=== PATIENT | female | born 1995 | race Caucasian/White ===

== ENCOUNTER 2025-03-17 13:13 | Emergency (ER) | payer MEDICAID, SELFPAY ==
[2025-03-17 13:21] VITALS: PULSE 70; RESP 16; O2SAT 98
[2025-03-17 13:29] VITALS: BP 142/81; PULSE 69; RESP 20; TEMP 37; O2SAT 98; BMI 32.9
--- NOTE | 2025-03-17 13:38 | XR_ITS ---
Examination: Duplex scan of the lower extremity, unilateral right complete Date and time of exam: March 17, 2025 1359 hours INDICATIONS: Right And pain beginning one week ago Technique: Duplex scan of the extremity veins using B-mode/grayscale imaging and Doppler spectral analysis and color flow Attention is directed to internal echogenicity, compression and augmentation involving these veins, color flow assessment, spectral analysis Findings: Major deep venous structures in the extremity demonstrate normal course and caliber. There is no evidence of deep vein thrombosis. Normal color flow and spectral analysis Impression: Negative for DVT..
--- NOTE | 2025-03-17 14:17 | PD.EDADULT ---
ED General RME/HPI General Chief complaint: General Adult/Misc Complain Stated complaint: NUMBNESS TO RIGHT LEG Time Seen by Provider: 03/17/25 13:37 Arrival date/time: 03/17/25 13:13 29-year-old female approximately 35 weeks presents to the emergency department today via EMS with concerns for right leg pain patient was instructed to rule out DVT Limitations: no limitations Related Data Allergies Allergy/AdvReac Type Severity Reaction Status Date / Time No Known Allergies Allergy Verified 03/17/25 13:24 Review of Systems Review of Systems Systems Reviewed: All systems reviewed, normal except as documented Constitutional Constitutional: Reports system reviewed and no additional complaints, except as documented, Denies fever(s) and Denies headache(s) Eyes Eyes: Reports system reviewed and no additional complaints, except as documented and Denies blurry vision ENT Ears, Nose, Mouth, and Throat: Reports system reviewed and no additional complaints, except as documented, Denies headache(s), Denies nasal congestion and Denies nasal discharge Cardiovascular Cardiovascular: Reports system reviewed and no additional complaints, except as documented, Denies chest pain and Denies dyspnea Respiratory Respiratory: Reports system reviewed and no additional complaints, except as documented, Denies chest congestion, Denies cough and Denies dyspnea Gastrointestinal Gastrointestinal: Reports system reviewed and no additional complaints, except as documented and Denies abdominal pain Integumentary/Breasts Skin/Breast: Reports system reviewed and no additional complaints, except as documented and Denies rash Neurologic Neurologic: Reports system reviewed and no additional complaints, except as documented, Reports as per HPI and Denies headache(s) Past Medical History Social History SMOKING STATUS: Never smoker ED Exam General Limitations: Present no limitations General appearance: Present alert and in no apparent distress Head Head exam: Present atraumatic Eye Eye exam: Present normal appearance, PERRL and EOMI ENT ENT exam: Present normal exam, normal oropharynx and mucous membranes moist Neck Neck exam: Present normal inspection, full ROM and trachea midline Chest Chest inspection: Present normal inspection and symmetric chest wall rise Respiratory Respiratory exam: Present normal lung sounds bilaterally Cardiovascular Cardiovascular exam: Present regular rate, normal rhythm and normal heart sounds Abdominal Exam Abdominal exam: Present soft and normal bowel sounds; Absent distention, tenderness, guarding, rebound or rigidity Extremities Exam Extremities exam: Present normal inspection and full ROM Back Exam Back exam: Present normal inspection and full ROM Neurological Exam Neurological exam: Present alert, oriented X3, CN II-XII intact, normal gait and reflexes normal; Absent motor sensory deficit Psychiatric Psychiatric exam: Present normal affect and normal mood Skin Skin exam: Present warm, dry, intact and normal color Course Quality Measures none Orders Category Date Time Status US venous doppler LE RT Stat Exams 03/17/25 13:38 Completed Vital Signs Vital signs: Vital Signs Temperature 98.6 F 03/17/25 13:29 Pulse Rate 69 03/17/25 13:29 Respiratory Rate 20 03/17/25 13:29 Blood Pressure 142/81 H 03/17/25 13:29 Pulse Oximetry (%) 98 03/17/25 13:29 Oxygen Delivery Method Room Air 03/17/25 13:29 O2 saturation 98% room air within the limits Discharge Plan Plan Patient Disposition: HOME (Self Care) Discharge Disposition comment: Stable Prescriptions/Referrals Referrals: Veda Ashley PA-C ([facility]) [Primary Care Provider] - 03/18/25 Problem List Clinical Impression: Leg pain, right Patient/Caregiver Discharge Instructions Education Materials: ED RICE Additional Instructions: Please follow up with your primary care doctor in the next 24-48hrs for any worsening symptoms return here immediately Print Language: Sinhala Stand Alone Forms: Irena Award Info., Patient Portal Info Letter PA/BRITTANY Supervising Physician PA/BRITTANY Supervising Physician: Dr. nugent MDM Narrative MDM hospital course (for use when minimal MDM required): 29-year-old female approximately 35 weeks presents to the emergency department today via EMS with concerns for right leg pain patient was instructed to rule out DVT On exam patient has no evidence of DVT clinically patient does not have DVT Ultrasound obtained no DVT noted Patient is no redness swelling or warmth patient walks with steady gait Patient reports no chest pain no shortness of breath no abdominal pain Patient reports no vaginal bleeding or pelvic pain Patient discharged home in no distress to follow-up with primary care doctor in the next 24 to 48 hours and for any worsening symptoms to return to the ER immediately Clinical Information Provided by: none Medical Records reviewed [facility] Meds/Rx considered, not ordered None Labs/Rad/Tests considered, not ordered None Chronic Illness/Social Conditions which may negatively complicate care or outcome(s)-explain: None or not applicable EKG EKG not done Labs Labs: none Imaging Imaging interpretation: see narrative above Imaging Interpretation(s): Obtained Medication Administration(s) none Diagnosis Differential Diagnosis ED Complaint MDM: DVT, leg pain, muscle spasm, nerve impingement Diagnoses ruled out and/or further discussions: Nerve impingement
== END 2025-03-17 16:31 | disposition home or self-care (01) ==
PROVIDERS: Emergency Provider Family Medicine; PCP Nurse Practitioner Family
DX: O99.891 Other specified diseases and conditions complicating pregnancy (principal); M79.604 Pain in right leg; Z3A.35 35 weeks gestation of pregnancy
CPT/HCPCS: 93971; 99283

== ENCOUNTER 2025-04-20 15:36 | Observation (INO) | payer MEDICAID, SELFPAY ==
[2025-04-20 15:46] VITALS: BMI 35.3
[2025-04-20 16:05] VITALS: BP 129/77; PULSE 70
[2025-04-20 16:25] VITALS: BP 129/77; PULSE 70; RESP 18; RESP 98; TEMP 36.8
[2025-04-20 16:26] VITALS: BP 130/72; PULSE 75
== END 2025-04-20 16:35 | disposition home or self-care (01) ==
PROVIDERS: Admitting Provider Specialist; Visit Provider Specialist
DX: O12.03 Gestational edema, third trimester (principal); Z3A.40 40 weeks gestation of pregnancy
CPT/HCPCS: 59025; 59899

== ENCOUNTER 2025-04-22 13:33 | Inpatient (IN) | payer MEDICAID, SELFPAY ==
--- NOTE | 2025-04-18 11:12 | ESHP_ITS ---
RE: ALEX LEUNG : 1995 DATE OF ADMISSION: 04/22/2025 HISTORY OF PRESENT ILLNESS: This is a 29-year-old 1, para 0 with intrauterine at 40 weeks 2 days on 04/22 who presents for postdates induction. Her care was complicated by lower extremity edema. Her workup and evaluation in her included a bilateral venous Doppler, which was negative for a DVT. She has had normal blood pressures in the office but her blood pressure today was elevated so PIH labs were drawn. She reports occasional contractions. She denies any leaking or bleeding. She reports normal movement. ALLERGIES: NO KNOWN DRUG ALLERGIES. MEDICATIONS: multivitamin 1 p.o. daily. SOCIAL HISTORY: She denies any alcohol, drug use, or smoking. PAST MEDICAL HISTORY: Allergic rhinitis, rubella non-immune, lower extremity edema. SOCIAL HISTORY: She is . She denies any alcohol, drug use, or smoking. FAMILY HISTORY: Denies. PAST SURGICAL HISTORY: Denies. REVIEW OF SYSTEMS: She denies any chest pain, palpitations, cough, fever, shortness of breath, or lower extremity pain. She denies any flank pain, right upper quadrant pain, headache, change of vision, or swelling in her face and hands. PHYSICAL EXAMINATION: VITAL SIGNS: Blood pressure 137/70, heart rate 88, respiration 18, and temperature is 98.6. Weight 216 pounds. HEENT: Oropharynx and sclerae are clear. LUNGS: Clear to auscultation bilaterally. HEART: Regular rate and rhythm. ABDOMEN: Gravid consistent with estimated weight 7 and 3/4 pounds. EXTREMITIES: Nontender. SKIN: No gross rashes or lesions. NEUROLOGIC: No focal deficit. ASSESSMENT AND PLAN: Intrauterine at 40 weeks 2 days , HTN, induction of labor, anticipate spontaneous vaginal delivery. Informed consent was obtained. The patient was made aware of the risks, complications, alternatives, and benefits of operative vaginal delivery and delivery and agrees with these modes of delivery if indicated. DT: 10:34:31 TT: 11:10:00 Ref: [id number] - TID: [id number] MTDD
[2025-04-22] VITALS (78 sets, daily range): BP systolic 123–163; BP diastolic 62–89; PULSE 42–97; RESP 19–99; TEMP 36.8; O2SAT 79–100; BMI 35.4
--- NOTE | 2025-04-22 14:42 | XR_ITS ---
EXAMINATION: age Limited TECHNIQUE: Limited transabdominal sonographic images pelvis Date and time: April 22, 2025, 1451 hours INDICATIONS: Labor evaluation, unknown presentation unknown weight. FINDINGS: Viable intrauterine gestation in cephalic presentation spine maternal left Cardiac motion 144 bpm Estimated weight 3274 g Estimated age 38 weeks 2 days IMPRESSION: Viable intrauterine gestation in cephalic presentation
[2025-04-22 15:44] LABS: Collection Type, Urine Clean Catch
[2025-04-22 15:47] LABS: Basophils # (Auto) 0.1 Thou/mm3 (0.0-0.2); Basophils % (Auto) 1 % (0-2.5); Eosinophils # (Auto) 0.3 Thou/mm3 (0.0-0.5); Eosinophils % (Auto) 2 % (0-10); Hematocrit 34.6 % (36.0-46.0); Hemoglobin 11.6 g/dL (12.0-16.0); Immature Granulocytes Auto 0.11 Thou/mm3 (0.00-0.00); Lymphocytes # (Auto) 2.6 Thou/mm3 (1.0-4.8); Lymphocytes % (Auto) 20 % (10-50); Mean Corpuscular HGB Conc 33.5 g/dl (31.0-37.0); Mean Corpuscular Hemoglobin 30.2 pg (25.0-35.0); Mean Corpuscular Volume 90 fL (80-100); Monocytes # (Auto) 0.9 Thou/mm3 (0.0-0.8); Monocytes % (Auto) 7 % (0-12); Neutrophils # (Auto) 9.0 Thou/mm3 (1.8-7.7); Neutrophils % (Auto) 70 % (37-80); Nucleated Red Blood Cell # 0.00 Thou/mm3 (0.00-0.00); Nucleated Red Blood Cell % 0 /100 WBC (0); Platelet Count 231 Thou/mm3 (140-440); RDW Standard Deviation 42.8 fL (36.4-46.3); Red Blood Count 3.84 Miln/mm3 (4.00-5.20); White Blood Count 13.0 Thou/mm3 (3.6-11.0)
[2025-04-22] MEDS: RINGERS LACTATED 1000 ML 1,000 ML 100 ML IV (15:55)
[2025-04-22 16:03] LABS: Bacteria,Urine Rare; Bilirubin,Urine Negative (Negative); Blood,Urine Negative (Negative); Clarity,Urine Clear (Clear/Hazy); Color,Urine Yellow (Lt Yel-Yel); Glucose, Urine Trace (Negative); Ketones,Urine Negative (Negative); Leukocyte Esterase,Urine Positive (Negative); Nitrite,Urine Negative (Negative); PH,Urine 6.0 (5.0-7.0); Protein,Urine Negative (Neg - Trace); RBC,Urine 3 /hpf (0-3); Specific Gravity,Urine 1.017 (1.001-1.035); Squamous Epithelial Cell,Urine 2 /hpf (0-5); Urobilinogen,Urine Negative mg/dL (0.0-1.0); WBC,Urine 3 /hpf (0-5)
[2025-04-22 16:11] LABS: Creatinine,Random Urine 67 mg/dL (30-125); Protein Total, Random Urine 12 mg/dL (1-14)
[2025-04-22 16:13] LABS: Alanine Aminotransferase 12 U/L (10-49); Albumin, Serum 3.9 gm/dL (3.5-5.0); Albumin/Globulin Ratio 1.8 (1.2-2.2); Alkaline Phosphatase 87 U/L (46-116); Anion Gap 11 (7-16); Aspartate Amino Transferase 18 U/L (0-34); BUN/Creatinine Ratio 14 Ratio (12-20); Bilirubin,Total 0.2 mg/dL (0.3-1.2); Blood Urea Nitrogen 10 mg/dL (9-23); Calcium 9.5 mg/dL (8.3-10.6); Calcium (Corrected) 9.6 mg/dL (8.5-10.1); Carbon Dioxide 21.9 mMol/L (20.0-31.0); Chloride 108 mMol/L (98-107); Creatinine (Component) 0.7 mg/dL (0.6-1.3); Estimated Creatinine Clearance 140.0 mL/min (>60); Globulin 2.2 gm/dL (2.3-3.5); Glucose 87 mg/dL (74-106); Osmolality,Calculated 279 (275-295); Potassium 4.0 mMol/L (3.4-5.1); Sodium 141 mMol/L (136-145); Total Protein 6.1 gm/dL (5.7-8.2); Uric Acid 4.0 mg/dL (3.1-7.8); eGFR > 60 See Note
[2025-04-22 16:36] LABS: Syphilis Nonreactive (Nonreactive)
--- NOTE | 2025-04-22 16:40 | PD.LDPPPRG ---
Subjective Subjective Interval history: Desires removal of balloon and Hernandez catheter. Denies any dizziness or lightheadedness. No vaginal bleeding around the balloon catheter or gauze packing. Adequate urine output Exam Vital Signs Pulse BP Pulse Ox 71 147/82 H 99 04/22/25 16:27 04/22/25 16:27 04/22/25 15:21 Objective Labs 04/22/25 15:33 04/22/25 15:33 Labs: Laboratory Results - last 24 hr 04/22/25 04/22/25 04/22/25 13:30 15:33 15:54 WBC 13.0 H RBC 3.84 L Hgb 11.6 L Hct 34.6 L MCV 90 MCH 30.2 MCHC 33.5 RDW Std Deviation 42.8 Plt Count 231 Neut % (Auto) 70 Lymph % (Auto) 20 Stephens % (Auto) 7 Eos % (Auto) 2 Baso % (Auto) 1 Neut # (Auto) 9.0 H Lymph # (Auto) 2.6 Stephens # (Auto) 0.9 H Eos # (Auto) 0.3 Baso # (Auto) 0.1 Immature Gran # (Auto) 0.11 H Absolute Nucleated RBC 0.00 Immature Gran % 1 H Nucleated RBC % 0 Sodium 141 Potassium 4.0 Chloride 108 H Carbon Dioxide 21.9 Anion Gap 11 BUN 10 Creatinine 0.7 Estim Creat Clear Calc 140.0 eGFR > 60 BUN/Creatinine Ratio 14 Glucose 87 Calculated Osmolality 279 Uric Acid 4.0 Calcium 9.5 Corrected Calcium 9.6 Total Bilirubin 0.2 L AST 18 ALT 12 Alkaline Phosphatase 87 Total Protein 6.1 Albumin 3.9 Globulin 2.2 L Albumin/Globulin Ratio 1.8 Ur Collection Type Clean Catch Urine Color Yellow Urine Clarity Clear Urine pH 6.0 Ur Specific Delta 1.017 Urine Protein Negative Urine Glucose (UA) Trace Urine Ketones Negative Urine Blood Negative Urine Nitrite Negative Urine Bilirubin Negative Urine Urobilinogen (Auto) Negative Ur Leukocyte Esterase Positive Urine RBC 3 Urine WBC 3 Ur Squamous Epith Cells 2 Urine Bacteria Rare Ur Random Creatinine 67 U Random Total Protein 12 Syphilis Serology Nonreactive Blood Bank Wristband ID Yes Assessment & Plan Time Spent With Patient Time: Total time spent is greater than 50% in coordination of care (as documented) at patient's floor/unit and/or counseling patient:
[2025-04-22 17:50] LABS: Fibrinogen 398 mg/dL (175-375); INR 0.9 (0.9-1.3); Partial Thromboplastin Time 26.4 Seconds (22.0-36.0); Prothrombin Time 9.8 Seconds (9.0-12.2)
[2025-04-23] VITALS (17 sets, daily range): BP systolic 108–159; BP diastolic 63–93; PULSE 65–86; RESP 12–20; TEMP 36.4–37.2; O2SAT 97–100
[2025-04-23] MEDS: RINGERS LACTATED 1000 ML 1,000 ML 100 ML IV (01:44)
[2025-04-23] MEDS: FAMOTIDINE INJ 10 MG/ML VIAL 2 ML 20 MG IV (04:33)
[2025-04-23] MEDS: ceFAZolin/D5W 2 GM IV 2 GM/100 ML BAG IV (04:35)
[2025-04-23] MEDS: CITRIC ACID/SODIUM CITR 15 ML UDC (BICITRA) 30 ML PO (04:35)
--- NOTE | 2025-04-23 05:02 | PD.LDPN ---
Documentation for date of: 04/23/25 OB Labor Progress Note Pelvic Exam Dilation (cm): Closed Effacement (%): Thick station: -3 Amniotic membrane status: Intact Contractions Monitor mode: External Contraction frequency: X1 NOTED VIA TOCO Contraction pattern: Tetanic Contraction intensity: Mild Status status: Category ll Assessment and Plan Comments: IUP 40w3d Postdates Induction of Labor Failed Induction due to recurrent prolonged decelerations with contractions and cervix long and closed. Delivery Informed consent obtained. Patient made aware of the risks, complications, alternatives and benefits of the proposed procedure and she agrees.
--- NOTE | 2025-04-23 06:51 | ESOP_ITS ---
Operative Note - RESEARCH BIOSTATISTICIAN Procedure Date of procedure: 04/23/25 Procedure Performed: Primary low transverse Delivery via Pfanensteil Skin Incision Indication: IUP 40w3d Postdates Induction of Labor Failed Induction due to recurrent prolonged decelerations with contractions and cervix long and closed. Pre-Op diagnosis: IUP 40w3d Postdates Induction of Labor Failed Induction due to recurrent prolonged decelerations with contractions and cervix long and closed. Post-Op diagnosis: IUP 40w3d Postdates Induction of Labor Failed Induction due to recurrent prolonged decelerations with contractions and cervix long and closed. Meconium. Endometriosis Stage III Anesthesia type: Spinal Procedure description: After proper informed consent was obtained and the patient was made aware of the risks, complications, alternatives and benefits of the proposed procedure she was taken to the operating room where she underwent induction of spinal anesthesia. She was prepped and draped in the usual sterile fashion. A timeout was performed.? A Pfannenstiel skin incision was made with the scalpel and carried through to the underlying layer of fascia with the Bovie. The fascia was nicked in the midline incision and the incision was extended bilaterally with the Bovie. The inferior aspect of the fascial incision was grasped with Syl clamps elevated and the underlying rectus muscle dissected off with the Bovie. The superior aspect the fascial incision was grasped with Syl clamps elevated and the underlying rectus muscle dissected off with the Bovie. The rectus muscles were in the midline. The peritoneum was grasped between 2 Saldivar clamps and entered sharply with the Metzenbaum scissors. The peritoneum was extended superiorly and inferiorly with good visualization of the bladder. The vesicouterine peritoneum was incised transversely and the bladder flap created digitally. A Alma blade was inserted. A low transverse incision was made in the uterus with a scapel and the incision was extended digitally. The male 's head delivered and the mouth and nose were suctioned with the bulb suction. The shoulder and body delivered atraumatically. The cord was clamped after 30 second delayed cord clamping and the cord was cut.? The was handed off to the waiting Pediatric staff, cord blood was collected for lab testing. The placenta was removed complete and intact. The uterus was exteriorized and cleared of all clots and debris. Extensive endometriosis both ovaries and posterior uterosacral ligments and posterior uterus. The uterine incision was closed with #1-0 chromic catgut suture in a running interlocking fashion. A second layer of the same suture was used to imbricate the first layer and obtain excellent hemostasis. The vesicouterine peritoneum was closed with 2- 0 chromic catgut suture in a running fashion. The firm uterus was returned to the abdomen. The gutters were cleared of all clots and debris. The peritoneum was closed with 0 chromic catgut suture in running fashion. The rectus muscle was closed with 0 chromic catgut suture. The fascia was closed with 0 Vicryl beginning at each angle and ending in the center in a running fashion. The subcutaneous tissue was irrigated with warmed normal saline solution and found to be hemostatic. The subcutaneous tissue was closed with 2-0 chromic catgut suture in a running fashion. The skin was closed with 4-0 Monocryl. A Dermabond Prineo dressing was applied and a sterile pressure dressing was applied.? She tolerated the procedure well. Counts were correct. I discussed with the patient the nature of her condition, intraoperative findings and expectation for recovery all? questions answered. Estimated blood loss (ml): 400 Findings: Live baby boy APGARS see RN notes Weight see RN notes Meconium stained amniotic fluid Placenta removed complete and intact Endometriosis Stage III Complications: none Surgical staff Operation Date: 04/23/25 05:30 Case Staff CUSTOMER SUCCESS ADVOCATE: Vishnu Horne sugar chipper machine operator: Jorge Gallegos Diagnosis Discharge Diagnosis (1) delivery delivered: Status: Acute (2) Endometriosis: Status: Acute Problem List Completed Was Problem List Reviewed/Reconciled?: Yes
--- NOTE | 2025-04-23 06:51 | PD.LDDS ---
DS: Providers Provider Date of admission: 04/22/25 14:51 Primary care physician: Physician No Primary/Family Admitting Provider: Daniele Wilkerson MD Attending Provider on Admission: Daniele Wilkerson MD Attending Provider on DC: Daniele Wilkerson MD Discharging Provider: Daniele Wilkerson MD DS: Diagnosis Problem List Completed Was Problem List Reviewed/Reconciled?: Yes Summary/Hosp Course Peripartum Data Delivery Method: Low Transverse Procedures: Procedures Operation Date: 04/23/25 05:30 Actual Procedure Side Surgeon p in OB Daniele Wilkerson MD Time Spent with Patient Time attestation: Total time spent providing and/or coordinating discharge services: Exam Vital Signs Temp Pulse Resp BP Pulse Ox 98.3 F 85 19 159/93 H 99 04/22/25 13:50 04/23/25 04:44 04/22/25 13:50 04/23/25 04:44 04/22/25 21:58 Discharge Plan Plan Patient Disposition: HOME (Self Care) Patient condition on transfer: Stable Prescriptions/Referrals Prescriptions/Med Rec: New hydrocodone-acetaminophen 5-325 mg tablet 1 tab PO Q6H MDD 4 PRN (Reason: pain) Qty: 20 0RF ibuprofen 600 mg tablet 600 mg PO Q6H PRN (Reason: pain) Qty: 30 0RF Continued PNV no.95-ferrous fumarate-FA [] 28 mg iron- 800 mcg tablet 1 tab PO DAILY Patient Comments: TAKE 1 TABLET BY MOUTH ONCE A DAY Discontinued folic acid 1 mg tablet 1 mg PO DAILY Patient Comments: TAKE 1 TABLET BY MOUTH EVERY DAY Referrals: No Primary/Family,Physician [Primary Care Provider] Patient/Caregiver Discharge Instructions Discharge Activity: activity as tolerated Other Discharge Activity Instructions:: Follow up in office whenever she gets back from her trip. Education Materials: Breast Care After , : Caring for Yourself, C Section Dc Print Language: Hebrew Stand Alone Forms: Irena Award Info., Patient Portal Info Letter Discharge Order Discharge Orders: Discharge (Routine); Ordered 04/25/25 Ordered By: Daniele Wilkerson Planned Discharge Date 04/25/25
[2025-04-23] MEDS: ONDANSETRON INJ 2 MG/ML INJ 2 ML 4 MG IVP (10:49)
[2025-04-23] MEDS: OXYTOCIN in NS 20 units 20 UNIT/1,000 ML BAG 125 UNIT IV (11:22)
[2025-04-23 11:32] LABS: Basophils # (Auto) 0.1 Thou/mm3 (0.0-0.2); Basophils % (Auto) 0 % (0-2.5); Eosinophils # (Auto) 0.0 Thou/mm3 (0.0-0.5); Eosinophils % (Auto) 0 % (0-10); Hematocrit 33.5 % (36.0-46.0); Hemoglobin 11.2 g/dL (12.0-16.0); Immature Granulocytes Auto 0.22 Thou/mm3 (0.00-0.00); Lymphocytes # (Auto) 1.3 Thou/mm3 (1.0-4.8); Lymphocytes % (Auto) 7 % (10-50); Mean Corpuscular HGB Conc 33.4 g/dl (31.0-37.0); Mean Corpuscular Hemoglobin 30.4 pg (25.0-35.0); Mean Corpuscular Volume 91 fL (80-100); Monocytes # (Auto) 0.4 Thou/mm3 (0.0-0.8); Monocytes % (Auto) 2 % (0-12); Neutrophils # (Auto) 17.2 Thou/mm3 (1.8-7.7); Neutrophils % (Auto) 90 % (37-80); Nucleated Red Blood Cell # 0.00 Thou/mm3 (0.00-0.00); Nucleated Red Blood Cell % 0 /100 WBC (0); Platelet Count 207 Thou/mm3 (140-440); RDW Standard Deviation 43.4 fL (36.4-46.3); Red Blood Count 3.69 Miln/mm3 (4.00-5.20); White Blood Count 19.1 Thou/mm3 (3.6-11.0)
[2025-04-23] MEDS: KETOROLAC INJ 30 MG/ML VIAL IVP (20:24)
[2025-04-23] MEDS: SIMETHICONE 80 MG CHEW PO (20:25)
[2025-04-24 00:15] VITALS: BP 129/68; PULSE 74; RESP 14; TEMP 36.7; O2SAT 97
[2025-04-24 03:32] VITALS: BP 112/67; PULSE 77; RESP 14; TEMP 36.8; O2SAT 98
[2025-04-24] MEDS: SIMETHICONE 80 MG CHEW PO ×2 (04:04→11:48)
[2025-04-24] MEDS: KETOROLAC INJ 30 MG/ML VIAL IVP (04:04)
[2025-04-24 07:30] VITALS: BP 116/69; PULSE 76; RESP 17; TEMP 37.1; O2SAT 97
--- NOTE | 2025-04-24 07:41 | ESPR_ITS ---
RE: ALEX LEUNG : 1995 DATE OF SERVICE: 04/24/2025 Postop day number 1. The patient denies any problem or complaint. She is voiding, ambulating, tolerating regular diet, passing flatus. She denies any excessive vaginal bleeding. She denies any dizziness or lightheadedness. She denies any chest pain, palpitations, shortness of breath or lower extremity pain. Blood pressure 112/67, heart rate 77, respirations 14, temperature is 98.2 pulse ox is 98% on room air. Lungs clear to auscultation bilaterally. Heart, regular rate and rhythm. Abdomen, dressing dry and intact. Fundus is firm. Extremities nontender. Hemoglobin pre-delivery 11.6, post-delivery 11.2. ASSESSMENT: Postoperative day number 1, status post delivery. PLAN: Remove dressing. Discontinue IV. Encourage ambulation, support. Possible discharge home tomorrow. DT: 07:17:01 TT: 07:40:00 Ref: [id number] - TID: [id number]
[2025-04-24] MEDS: ENOXAPARIN SOD INJ 40 MG/0.4 ML SYRINGE SC (08:06)
[2025-04-24 11:40] VITALS: BP 132/71; PULSE 89; RESP 18; TEMP 36.8; O2SAT 98
[2025-04-24] MEDS: IBUPROFEN TAB 400 MG TABLET 800 MG PO (11:48)
[2025-04-24 19:19] VITALS: BP 132/70; PULSE 89; RESP 17; TEMP 36.8; O2SAT 99
[2025-04-24] MEDS: HYDROcodone/APAP 5/325 TABLET 1 TAB PO (20:40)
[2025-04-25] MEDS: HYDROcodone/APAP 5/325 TABLET 1 TAB PO ×3 (03:04→12:11)
[2025-04-25] MEDS: SIMETHICONE 80 MG CHEW PO (03:04)
[2025-04-25 03:15] VITALS: BP 115/66; PULSE 78; RESP 18; TEMP 36.7; O2SAT 100
--- NOTE | 2025-04-25 07:15 | PC.NURSE ---
Mother resting quietly in room w/ mother at bedside. Requesting something for pain. Will cont' to monitor.
[2025-04-25 08:00] VITALS: BP 127/78; PULSE 75; RESP 17; TEMP 36.6; O2SAT 98
--- NOTE | 2025-04-25 08:19 | ESPR_ITS ---
RE: ALEX LEUNG : 1995 DATE OF SERVICE: 04/25/2025 SUBJECTIVE: Post op day #2. Patient denies any problem or complaints. She is voiding. She is ambulating. She is tolerating diet. She is passing flatus. She denies any excessive vaginal bleeding. She denies any dizziness or lightheadedness. She denies any chest pain, palpitations, shortness of breath, or lower extremity pain. OBJECTIVE: Vital Signs: Blood pressure 115/66, heart rate 78, respirations 18, temperature is 98.1, pulse ox is 100 % on room air. Lungs: Clear to auscultation bilaterally. Heart: Regular rate and rhythm. Abdomen: Incision clear and intact. Extremities: Nontender. ASSESSMENT: Postop day #2 status post delivery. PLAN: Discharge home. Discharge instructions given. I reviewed with the patient the finding of endometriosis at the time of the surgery. I discussed the nature of its condition, the significance for the future, as well as treatment plans and options, which we will cover more extensively on her post op visit. Discharge instructions given. Follow up in the office in 1 week. DT: 07:52:49 TT: 08:18:00 Ref: [id number] - TID: [id number]
[2025-04-25 11:40] VITALS: BP 119/75; PULSE 80; RESP 17; TEMP 36.6; O2SAT 99
[2025-04-25] MEDS: ENOXAPARIN SOD INJ 40 MG/0.4 ML SYRINGE SC (12:11)
--- NOTE | 2025-04-25 12:17 | PC.NURSE ---
Pt changed her mind and refused the MMR vaccine. Pt is afraid she was already given the vaccine even thought it was not documented. Vaccine returned to the pyxis.
--- NOTE | 2025-04-25 14:22 | PC.NURSE ---
Pt discharged home via private vehicle accompanied by her parents; pt taken to main entrance via w/c holding baby in baby carrier on her lap. D/C inst given w/ understanding expressed and questions answered.
--- NOTE | 2025-04-27 20:55 | PD.LDDELS ---
Data (Enciso) Data Hx Section: No : 1 Term: 0 : 0 Livin Abortions: Spontaneous & Theraputic: 0 Delivery Data (Enciso) Labor Data Initiation of labor: Induction Induction/Augmentation Agent: Artificial ROM ROM date: 04/23/25 ROM time: 05:29 Amniotic membrane rupture type: Artificial Amniotic fluid description: Clear Delivery Data delivery date: 04/23/25 [place] delivery time: 05:30 Placenta delivery date: 04/23/25 Placenta delivery time: 05:31 Delivered by: GEILING Delivery nurse: WERO JERNIGAN [place] nurse: ОЛЬГА MCNAMARA RN Perinatal Instructor at delivery: No Support person(s) at delivery: FATHER OF THE BABY Delivery Method Delivery method: Low Transverse Presentation: Vertex Anesthesia Type Anesthesia Type: Spinal Anesthesia type: Spinal Placenta Placenta delivery description: Manual Removal Cord blood sent to lab: Yes cord blood collection: Cord Blood Type Umbilical Cord cord description: 3 Vessels [place] Data (Enciso) Data order: 1 's gender: Male Identification band number: [id number] weight (gms): 8 lb 4.277 oz Weight (pounds): 8 lbs and 4.3 ozs 1 minute: 9 5 minutes: 9
== END 2025-04-25 14:22 | disposition home or self-care (01) | DRG 540 ==
LOC: S4SX 04-23 06:59 → S4NX 04-23 15:15
PROVIDERS: Admitting Provider Specialist; Visit Provider Specialist
PROC: 10D00Z1 Extraction of Products of Conception, Low, Open Approach (ICD-10-PCS; CPT 59514; principal; 2025-04-23 05:15)
DX: O48.0 Post-term pregnancy (principal); Z3A.40 40 weeks gestation of pregnancy; O77.0 Labor and delivery complicated by meconium in amniotic fluid; Z37.0 Single live birth; O76 Abnormality in fetal heart rate and rhythm complicating labor and delivery; O12.04 Gestational edema, complicating childbirth; O99.892 Other specified diseases and conditions complicating childbirth; N80.9 Endometriosis, unspecified; O61.9 Failed induction of labor, unspecified
CPT/HCPCS: 36415; 59409; 76815; 80053; 81001; 82570; 84156; 84550; 85025; 85384; 85610; 85730; 86780; 86850; 86900; 86901; 94762; A4217; A4314; A4649; J0689; J1100; J1200; J1650; J1885; J2250; J2274; J2405; J2590; J3490; J7120; A9270; J2270

== ENCOUNTER → 2025-06-29 | Outpatient (CLI) | payer MEDICAID, SELFPAY ==
--- NOTE | 2025-06-29 15:32 | XR_ITS ---
Study: Right shoulder radiographs. INDICATION: Right shoulder pain for 2 weeks without known trauma. Patient is post on 23 April. Technique: Internal and external rotation radiographs and a scapular Y radiograph of the right shoulder at 1540 hours 29 June 2025. Findings: Bony mineralization is normal. There is no fracture, dislocation or arthropathy. Subjacent ribs are normal. IMPRESSION: Normal study.
== END | disposition home or self-care (01) ==
LOC: CDIM 15:29
PROVIDERS: Referring Provider Specialist; Visit Provider Specialist
DX: M25.511 Pain in right shoulder (principal)
CPT/HCPCS: 73030